=== PATIENT | female | born 1965 | race Hispanic/Latino ===

== ENCOUNTER 2018-07-08 21:53 | Emergency (ER) | payer BC ==
[2018-07-08] MEDS ORDERED: KETOROLAC TROMETHAMINE 60 MG/2 ML VIAL ONE (22:34)
[2018-07-08] MEDS ORDERED: METHYLPREDNISOLONE SOD SUCC 125MG/2ML VIAL ONE (22:34)
== END 2018-07-08 23:02 | disposition home or self-care (01) ==
LOC: EDH 21:53
DX: G56.02 Carpal tunnel syndrome, left upper limb (principal); I10 Essential (primary) hypertension; M19.90 Unspecified osteoarthritis, unspecified site
CPT/HCPCS: 29125; 96372 ×2; 99284; J1885; J2930